=== PATIENT | male | born 1955 | race African-American/Black ===

== ENCOUNTER 2018-10-21 09:56 | Outpatient (CLI) | payer OTHER | END 2018-10-21 10:25 | disposition home or self-care (01) | LOC: LAB 09:56 | DX: I10 Essential (primary) hypertension (principal); E78.2 Mixed hyperlipidemia; E55.9 Vitamin D deficiency, unspecified; E11.9 Type 2 diabetes mellitus without complications; Z12.11 Encounter for screening for malignant neoplasm of colon; Z12.5 Encounter for screening for malignant neoplasm of prostate ==

== ENCOUNTER 2018-10-22 09:21 | Outpatient (CLI) | payer OTHER | END 2018-10-22 10:03 | disposition home or self-care (01) | LOC: LAB 09:21 | DX: I10 Essential (primary) hypertension (principal); E78.2 Mixed hyperlipidemia; E55.9 Vitamin D deficiency, unspecified; E11.9 Type 2 diabetes mellitus without complications; Z12.11 Encounter for screening for malignant neoplasm of colon; Z12.5 Encounter for screening for malignant neoplasm of prostate ==

== ENCOUNTER 2018-12-31 07:02 | Outpatient (CLI) | payer OTHER | END 2018-12-31 07:10 | disposition home or self-care (01) | LOC: LAB 07:02 | DX: E11.9 Type 2 diabetes mellitus without complications (principal); E78.2 Mixed hyperlipidemia; I10 Essential (primary) hypertension ==

== ENCOUNTER → 2019-08-07 07:50 | Outpatient (CLI) | payer OTHER | END | disposition home or self-care (01) | LOC: LAB 07:50 | DX: E11.65 Type 2 diabetes mellitus with hyperglycemia (principal); I10 Essential (primary) hypertension; E78.2 Mixed hyperlipidemia ==

== ENCOUNTER 2020-03-02 07:52 | Outpatient (CLI) | payer OTHER | END 2020-03-02 07:58 | disposition home or self-care (01) | LOC: RAD 07:52 | DX: I10 Essential (primary) hypertension (principal) ==

== ENCOUNTER 2025-04-15 07:27 | Outpatient (CLI) | payer OTHER ==
[2025-04-15 08:05] LABS: URINE APPEARANCE Clear; URINE BILIRRUBIN Negative (NEGATIVE); URINE BLOOD Negative; URINE COLOR Yellow; URINE KETONE Negative (NEGATIVE); URINE LEUKOCYTE Negative; URINE NITRATE Negative; URINE UROBILINOGEN 0.2 E.U./dl
[2025-04-15 08:09] LABS: URINE EPITHELIAL CELLS 2.4 uL (0.0-38.8); URINE WBC 2.0 uL (0.0-23.2)
[2025-04-15 08:26] LABS: URINE BACTERIA 3.5 uL (0.0-1933); URINE CAST 0.73 uL (0.0-1.40); URINE GLUCOSE 500 MG/DL (NEGATIVE); URINE PROTEIN 100 (NEGATIVE); URINE RBC 1.0 uL (0.0-20.8)
[2025-04-15 09:25] LABS: BUN CREA RATIO 15.0 (7.0-25.0); CREATININE SERUM 2.72 mg/dL (0.70-1.30); GFR 23.28; GLUCOSE FASTING 115.0 mg/dL (65-100); OSMOLALITY SERUM 300.0 MOSM/KG (275-295)
== END 2025-04-15 07:28 | disposition home or self-care (01) ==
LOC: LAB 07:27
DX: I10 Essential (primary) hypertension (principal); E11.21 Type 2 diabetes mellitus with diabetic nephropathy; N18.30 Chronic kidney disease, stage 3 unspecified; N18.2 Chronic kidney disease, stage 2 (mild)

== ENCOUNTER 2025-04-15 07:57 | Outpatient (CLI) | payer OTHER | END 2025-04-15 08:02 | disposition home or self-care (01) | LOC: SONOGRAMA 07:57 | DX: N18.30 Chronic kidney disease, stage 3 unspecified (principal); I10 Essential (primary) hypertension ==